=== PATIENT | female | born 1985 | race Caucasian/White ===

== ENCOUNTER 2018-01-04 20:44 | Emergency (ER) | payer OTHER ==
[2018-01-04 21:28] VITALS: BP 91/58; PULSE 62; RESP 16; TEMP 97.9; O2SAT 98
--- NOTE | 2018-01-04 22:06 | ED PDOC ---
HPI: Female Pain Time Seen by Provider: 01/04/18 21:25 Chief Complaint (Nursing): Female Genitourinary Chief Complaint (Provider): Female Genitourinary History Per: Patient History/Exam Limitations: no limitations Onset/Duration Of Symptoms: Days (about 1 month) Current Symptoms Are (Timing): Still Present Additional Complaint(s): 32 year old female presents to the ED for evaluation of vaginal burning and discomfort. Patient states that on 12/17 she was clinically diagnosed (and was confirmed by test results) with a yeast infection by her steamfitter, who gave three doses of Diflucan pills. Patient notes she had temporary improvement of symptoms but then felt as if they were returning so on 12/30, she went back to her gyno who gave her triamcinolone cream and tested for STDs and yeast again, which both came back negative. Patient states that the cream temporarily helped , but yesterday she felt a burning sensation, prompting her visit today. Otherwise, (-) vaginal discharge, (-) abdominal pain, (-) nausea, (-) vomiting, (-) fever/chills (-) urinary symptoms (-) history of STDs (+) history of yeast infections (-) history of UTI. Of note, her last sexual encounter was in September with her f[place] who is now [place]. LMP: 12/26/17 PMD: none provided Past Medical History Reviewed: Historical Data, Nursing Documentation, Vital Signs Vital Signs: Last Vital Signs Temp 97.9 F 01/04/18 21:24 Pulse 62 01/04/18 21:24 Resp 16 01/04/18 21:24 BP 91/58 L 01/04/18 21:24 Pulse Ox 98 01/04/18 21:24 - Medical History PMH: No Chronic Diseases Denies: Chronic Kidney Disease - Surgical History Surgical History: No Surg Hx - Family History Family History: States: Unknown Family Hx - Social History Current smoker - smoking cessation education provided: No Alcohol: None Drugs: Denies - Home Medications Home Medications: Ambulatory Orders Medication Instructions Recorded Clotrimazole 1% Vaginal [Lotrimin 1 applic VG BID #1 tube 01/04/18 1% Vaginal] - Allergies Allergies/Adverse Reactions: Allergies Allergy/AdvReac Type Severity Reaction Status Date / Time cefdinir [From Omnicef] Allergy DIZZINESS Verified 01/04/18 21:24 Review of Systems ROS Statement: Except As Marked, All Systems Reviewed And Found Negative Constitutional: Negative for: Fever Gastrointestinal: Negative for: Nausea, Vomiting, Abdominal Pain Genitourinary Female: Positive for: Other (burning sensation). Negative for: Vaginal Discharge Physical Exam - Reviewed Nursing Documentation Reviewed: Yes Vital Signs Reviewed: Yes - Physical Exam Comments: GENERAL APPEARANCE: Patient is awake, alert, oriented x 3, in no acute distress. SKIN: Warm, dry; (-) cyanosis. ENMT: Mucous membranes moist. Airway patent: (-) stridor. NECK: Supple, FROM CHEST AND RESPIRATORY: (-) wheezing; (-) rales, (-) rhonchi, (-) rub; breath sounds equal bilaterally. HEART AND CARDIOVASCULAR: (-) irregularity; (-) murmur, (-) gallop. ABDOMEN AND GI: Soft; (-) tenderness (-) guarding (-) distention (-) CVA tenderness. NEURO AND PSYCH: Mental status as above; (-) focal findings. Patient refused pelvic exam at this time. - Laboratory Results Urine POC: Negative Urine dip results: Positive for: Ketones (trace). Negative for: Leukocyte Esterase, Blood, Nitrate, Glucose, Bilirubin, Protein - ECG O2 Sat by Pulse Oximetry: 98 (RA) Pulse Ox Interpretation: Normal Medical Decision Making Medical Decision Making: Time: 21:58 Initial Impression: vaginal irritation, possible UTI Initial Plan: --Urine --Urine dipstick --Urine culture --Urinalysis --Re-evaluation --Patient is refusing a pelvic exam at this time. 22:00 test is negative. 2220 Udip reviewed, grossly unremarkable. 2315 U/A reviewed with no evidence of UTI. On re-evaluation, patient reports no additional complaints. On exam, patient remains AAOx3, in no acute distress. Neck is supple, lungs CTA, cardiac RRR, neuro exam shows no focal findings. VSS, stable for discharge. Patient will be given Rx for Clotrimazole. Advised to use if symptoms do not improve within 48- 72 hours. Diagnostic results d/w the patient in great detail. Dx of vaginal irritation, possible yeast infection d/w the patient. Based on history, exam and diagnostic results plan will be for discharge and outpatient [facility] follow up. Advised to follow up with primary care physician/[facility] in 1-2 days without fail. Advised to take medication as prescribed. Return to the emergency room at any time for any new or worsening symptoms. Patient states she fully agrees with and understands discharge instructions. States that she agrees with the plan and disposition. Verbalized and repeated discharge instructions and plan. I have given the patient opportunity to ask any additional questions. Scribe Attestation: Documented by Shilpi Cohen, acting as a scribe for Katya Travis PA-C. Provider Scribe Attestation: All medical record entries made by the Scribe were at my direction and personally dictated by me. I have reviewed the chart and agree that the record accurately reflects my personal performance of the history, physical exam, medical decision making, and the department course for this patient. I have also personally directed, reviewed, and agree with the discharge instructions and disposition. Disposition - Clinical Impression Clinical Impression: Vaginal irritation - Patient ED Disposition Is Patient to be Admitted: No Counseled Patient/Family Regarding: Studies Performed, Diagnosis, Need For Followup, Rx Given - [facility]position [facility] Disposition: Routine/Home Disposition Time: 23:15 Condition: STABLE Additional Instructions: FOLLOW UP WITH [facility] WITHIN WEEK FOR FURTHER EVALUATION. RETURN TO ED WITH ANY NEW OR WORSENING SYMPTOMS USE RX IF SYMPTOMS DO NOT IMPROVE AFTER A FEW DAYS. Prescriptions: Clotrimazole 1% Vaginal [Lotrimin 1% Vaginal] 1 applic VG BID #1 tube Instructions: Vulvovaginal Yeast Infection, Vaginal Yeast Infection (DC), Vaginitis Forms: [employer] (Ecuadorean) Print Language: MALTESE - POA Present On Arrival: None Results - Lab Results Lab Results: 01/04/18 22:03 Urine Color Yellow Urine Clarity Clear Urine pH 7.0 Ur Specific [place] 1.021 Urine Protein Negative Urine Glucose (UA) Neg Urine Ketones Trace Urine Blood Negative Urine Nitrate Negative Urine Bilirubin Negative Urine Urobilinogen 0.2-1.0 Ur Leukocyte Esterase Neg Urine RBC (Auto) 4 H Urine Microscopic WBC 1 Ur Squamous Epith Cells < 1
[2018-01-04 22:12] LABS: SQUAMOUS EPITHIAL < 1 /hpf (0-5); URINE BILIRUBIN NEGATIVE (NEGATIVE); URINE BLOOD NEGATIVE (NEGATIVE); URINE CLARITY CLEAR (Clear); URINE COLOR YELLOW (YELLOW); URINE GLUCOSE (UA) NEG (Normal); URINE LEUKOCYTE ESTERASE NEG Leu/uL (Negative); URINE PROTEIN NEGATIVE (NEGATIVE); URINE UROBILINOGEN 0.2-1.0 mg/dL (0.2-1.0)
== END 2018-01-04 23:49 | disposition home or self-care (01) ==
LOC: H.ER 20:44
DX: N89.8 Other specified noninflammatory disorders of vagina (principal)